=== PATIENT | male | born 1995 | race African-American/Black ===

== ENCOUNTER 2017-02-12 15:42 | Emergency (ER) | payer BC, OTHER ==
[2017-02-12 15:46] VITALS: BP 141/63; PULSE 64; TEMP 98.1; BMI 41.7
--- NOTE | 2017-02-12 17:03 | PDOC ---
History of Present Illness - General Chief Complaint: Injury Stated Complaint: RT WRIST PAIN Time Seen by Provider: 02/12/17 16:01 History Source: Patient Exam Limitations: No Limitations - History of Present Illness Initial Comments: 02/12/17 17:00 21-year-old male complaining of right wrist pain. Patient states has had pain since Tuesday and felt it after he made a tackle on Tuesday playing football. Patient denied pain initially but states pain developed over the night and into the morning so placed in a wrist immobilizer for discomfort. Patient states since pain continued mother decided bring patient to the ER. Patient denies recent injury to the affected area and denies any sensory changes distally. Patient denies any clicking or deformity. Timing/Duration: 1 week Severity: mild Associated Symptoms: reports: denies symptoms Past History - Past Medical History Allergies/Adverse Reactions: Allergies Allergy/AdvReac Type Severity Reaction Status Date / Time No Known Allergies Allergy Verified 02/12/17 15:46 Home Medications: Ambulatory Orders No Home Medications 0 dose .ROUTE UTDICT 08/05/12 Asthma: No HTN: Yes - Immunization History Immunization Up to Date: Yes - Psycho/Social/Smoking Cessation Hx Anxiety: No Suicidal Ideation: No Smoking Status: No Smoking History: Never smoked Number of Cigarettes Smoked Daily: 0 Hx Alcohol Use: No Drug/Substance Use Hx: No Substance Use Type: None Patient Lives Alone: No Lives with/in: parents Review of Systems - Review of Systems Able to Perform ROS?: Yes Constitutional: No: Symptoms Reported Musculoskeletal: Yes: Joint Pain (right) Integumentary: No: Symptoms Reported Neurological: No: Symptoms reported *Physical Exam - Vital Signs Last Vital Signs Temp Pulse Resp BP Pulse Ox 98.1 F 64 20 141/63 97 02/12/17 15:43 02/12/17 15:43 02/12/17 15:43 02/12/17 15:43 02/12/17 15:43 - Physical Exam General Appearance: Yes: Nourished, Appropriately Dressed. No: Apparent Distress Comments:: 02/12/17 16:59 2+ right radial Extremity: positive: Normal Capillary Refill, Normal Inspection, Normal Range of Motion, Tender (generalized over dorsal aspect of right wrist) Integumentary: positive: Normal Color, Warm, Moist Neurologic: positive: Motor Strength 5/5 (right hand grasp) ED Treatment Course - RADIOLOGY Radiology Studies Ordered: Category Date Time Status WRIST- RIGHT [RAD] Stat Radiology 02/12/17 16:14 Taken Medical Decision Making - Medical Decision Making 02/12/17 17:02 Pt c/o right wrist pain for the past 5 days but denies any weakness or sensory changes distally. Patient on exam had generalized tennis over the dorsal aspect of right wrist without crepitus, deformity, or edema. Patient ordered for an x- ray. 02/12/17 17:43 X-ray negative for acute findings. Patient be discharged home to continue with immobilizer take Motrin rest including no football for the next 5 days. Patient then recommended if pain continues to follow-up with referred orthopedist. *DC/Admit/Observation/Transfer Diagnosis at time of Disposition: Sprain of right wrist Qualifiers: Encounter type: initial encounter Qualified Code(s): S63.501A - Unspecified sprain of right wrist, initial encounter - Discharge Dispostion Disposition: HOME Condition at time of disposition: Good - Referrals Referrals: Je Presley MD [Staff Physician] - - Patient Instructions Printed Discharge Instructions: DI for Wrist Pain, DI for Wrist Sprain Additional Instructions: During the day but remove at night. Take Motrin 600 mg every 8 hours for inflammation and discomfort. Apply ice to the affected area at least 3 times a day 15 minutes. No football 5 days and if discomfort continues please follow-up with referred orthopedist. - Post Discharge Activity Work/School Note: Back to School
== END 2017-02-12 17:50 | disposition home or self-care (01) ==
LOC: JERFT 15:42
DX: S63.501A Unspecified sprain of right wrist, initial encounter (principal); W51.XXXA Accidental striking against or bumped into by another person, initial encounter; Y93.61 Activity, american tackle football; Y92.9 Unspecified place or not applicable; I10 Essential (primary) hypertension
CPT/HCPCS: 73110-TC-RT; 99281-25

== ENCOUNTER 2018-11-24 08:37 | Emergency (ER) | payer SELFPAY ==
[2018-11-24 08:47] VITALS: BP 132/70; PULSE 78; TEMP 97.8; BMI 36.6
--- NOTE | 2018-11-24 09:06 | PDOC ---
History of Present Illness - General Chief Complaint: Pain Stated Complaint: nauseous,dry mouth,stomach feels weak in the morn Time Seen by Provider: 11/24/18 08:49 History Source: Patient Exam Limitations: No Limitations Past History - Past Medical History Allergies/Adverse Reactions: Allergies Allergy/AdvReac Type Severity Reaction Status Date / Time No Known Allergies Allergy Verified 11/24/18 08:44 Home Medications: Ambulatory Orders No Home Medications 0 dose .ROUTE UTDICT 08/05/12 Asthma: No COPD: No HTN: Yes - Immunization History Immunization Up to Date: Yes - Suicide/Smoking/Psychosocial Hx Smoking Status: No Smoking History: Never smoked Number of Cigarettes Smoked Daily: 0 Hx Alcohol Use: No Drug/Substance Use Hx: No Substance Use Type: None *Physical Exam - Vital Signs Last Vital Signs Temp Pulse Resp BP Pulse Ox 97.8 F 78 18 132/70 100 11/24/18 08:45 11/24/18 08:45 11/24/18 08:45 11/24/18 08:45 11/24/18 08:45 - Physical Exam General Appearance: No: Apparent Distress Respiratory/Chest: positive: Lungs Clear, Normal Breath Sounds. negative: Respiratory Distress Cardiovascular: positive: Regular Rhythm, Regular Rate, S1, S2. negative: Murmur Gastrointestinal/Abdominal: positive: Normal Bowel Sounds, Soft. negative: Tender, Distended, Guarding, Rebound Integumentary: positive: Normal Color Neurologic: positive: Fully Oriented, Alert, Normal Mood/Affect Moderate Sedation - Procedure Monitoring Vital Signs: Procedure Monitoring Vital Signs Temperature 97.8 F 11/24/18 08:45 Pulse Rate 78 11/24/18 08:45 Respiratory Rate 18 11/24/18 08:45 Blood Pressure 132/70 11/24/18 08:45 O2 Sat by Pulse Oximetry (%) 100 11/24/18 08:45 Medical Decision Making - Medical Decision Making 23 y/o M with no sig pmh presents with NBNB emesis since 4 days ago; emesis only occurs in the AM (may occur maybe once or twice in the AM), but is fine for the rest of the day. States feels sensation of something stuck in esophagus. Patient had dinner last night which he tolerated well and is not currently nauseous. Denies any burning sensation in chest. Denies fever, chills , sob, cp, abd pain, diarrhea, urinary complaints. Denies heavy alcohol use. Currently in NAD Not suspicious for any acute pathology such as cholecystitis or pancreatitis Patient also tolerating PO Will refer to GI for further eval 11/24/18 09:03 *DC/Admit/Observation/Transfer Diagnosis at time of Disposition: Emesis Qualifiers: Vomiting type: unspecified Vomiting Intractability: non-intractable Nausea presence: with nausea Qualified Code(s): R11.2 - Nausea with vomiting, unspecified - Discharge Dispostion Disposition: HOME Condition at time of disposition: Stable Decision to Admit order: No - Referrals Referrals: Vonda Brush DO [Staff Physician] - 3 days - Patient Instructions Printed Discharge Instructions: DI for Vomiting -- Adult Additional Instructions: Thank you for choosing [facility]. It was a pleasure taking care of you. Recommend eating light foods like bananas, applesauce, plain toast, plain yogurt , plain rice until starting to feel better Avoid laying down immediately after eating Avoid oily/fried foods Drink at least 2L of water daily Follow-up with your PCP in 2-3 days You were also referred to GI for followup Return to the Emergency Department if your symptoms worsen or persist or have other concerning symptoms. - Post Discharge Activity
== END 2018-11-24 09:26 | disposition home or self-care (01) ==
LOC: JER 08:37
DX: R11.10 Vomiting, unspecified (principal); R11.2 Nausea with vomiting, unspecified
CPT/HCPCS: 99282-25